=== PATIENT | male | born 1955 | race Caucasian/White ===

== ENCOUNTER 2025-03-05 14:40 | Day surgery (SDC) | payer OTHER ==
[2025-03-04 14:03] LABS: Absolute Basophils 0.1 K/uL (0-0.5); Absolute Eosinophils 0.2 K/uL (0-0.5); Absolute Lymphocytes (CBC) 1.2 K/uL (0.7-4.9); Absolute Monocytes 0.4 K/uL (0.1-1.3); Absolute Neutrophil 4.3 K/uL (1.8-8.0); Eosinophils % 3.3 % (0-4.4); Hematocrit 43.4 % (39.6-49.0); Hemoglobin 15.1 g/dL (13.6-17.9); MCH 32.2 pg (27.0-35.0); MCHC 34.8 g/dL (32.0-36.0); MCV 92.5 fL (80-100); MPV 6.9 fL (7.6-11.3); Monocytes % 6.8 % (3.3-12.3); Neutrophils % 69.9 % (41.7-73.7); Platelets 225 thou/uL (152-406); RBC Red Blood Cell Count 4.69 M/uL (4.33-5.43); Red Cell Distribution Width 14.4 % (12.1-15.2)
[2025-03-04 14:16] LABS: PT Prothrombin Time 11.2 SECONDS (10-13.0); PTT, Activated Partial Thromb 30.8 SECONDS (27.2-37.4); Protime INR 0.98
[2025-03-04 14:20] LABS: Anion Gap 8.2 mEq/L (5.0-15.0); Potassium 4.2 mEq/L (3.5-5.1)
--- NOTE | 2025-03-04 15:25 | RAD REPORT ---
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 FINDINGS: LUNGS/PLEURA: The lungs are clear. No pleural effusions or pneumothorax. No pulmonary edema. CARDIAC/MEDIASTINUM: The cardiac silhouette is within normal limits. UPPER ABDOMEN: No significant abnormality. BONES: No acute abnormality. LINES/TUBES/OTHER: N/A IMPRESSION: No evidence of acute cardiopulmonary disease.
[2025-03-05] MEDS ORDERED: NA CHLORIDE 0.9% 500 ML ONE (14:47)
[2025-03-05] MEDS ORDERED: ATROPINE SULF 1 MG/10 ML SYR IV ONE (15:50)
[2025-03-05] MEDS ORDERED: LIDOCAINE 1% 20 ML MDV ONE (15:50)
[2025-03-05] MEDS ORDERED: HEPA 1000U/500MLS 2,000 UNIT/1,000 ML BAG IV ONE (15:50)
[2025-03-05] MEDS ORDERED: VERAPAMIL HCL 10 MG/4 ML VIAL IV ONE (15:50)
[2025-03-05] MEDS ORDERED: MIDAZOLAM HCL 2 MG/2 ML INJ ONE (15:50)
[2025-03-05] MEDS ORDERED: HEPARIN 10,000 UNIT/10 ML VIAL IV ONE (15:50)
[2025-03-05] MEDS ORDERED: HEPARIN 5000 UNIT/ML 1 ML VIAL ONE (15:51)
[2025-03-05] MEDS ORDERED: ASPIRIN 325 MG TAB ONE (15:51)
[2025-03-05] MEDS ORDERED: CLOPIDOGREL 75 MG TABLET ONE (15:51)
[2025-03-05] MEDS ORDERED: FENTANYL CITR 100 MCG/2 ML ONE (15:51)
[2025-03-05] MEDS ORDERED: TICAGRELOR 90 MG TABLET PO ONE (15:51)
--- NOTE | 2025-03-05 16:47 | OP ---
Date of Procedure: 03/05/2025 Surgeon: APPLE SWIFT Procedures Performed: 1. Selective coronary angiogram. 2. Left heart catheterization. Indication: Unstable angina. Access: Right radial artery 6-Niuean, closed with TR band. Complications: None. Bleeding: Less than 50 mL. Total Sedation Time: 45 minutes, used fentanyl and Versed. Description Of Procedure: After risks, benefits, and alternatives were explained, the patient agreed to procedure and signed informed consent. [facility] prepped and draped in usual sterile fashion. Then, I accessed right radial artery using pedi atric micropuncture kit and placed 6-Niuean Slender sheath and took 5-Niuean Norton 4 catheter into th e aortic root, engaged left main and then right coronary artery, took standard views and across the a ortic valve, measured the LVEDP. Pullback did not record any significant gradient. Then, removed th e catheter and the sheath and placed TR band with good hemostasis. Findings: 1. Left main, large and normal. 2. LAD, large vessel, proximal 30% stenosis. Rest of it is with luminal irregularities. Normal diag onal branches. 3. Left circumflex, large and dominant, proximal 30% and then clear of disease. 4. RCA, medium size vessel, codominant, and no disease. 5. LVEDP is 8 and mean gradient across the aortic valve was only 12 mmHg. Conclusion: 1. Mild nonobstructive coronary artery disease. 2. No significant gradient through the aortic valve. 3. Status post BAV. Plan: Medical management and arrange for aortic valve replacement after obtaining the records from [facility] to confirm that he had a BAV. SR/MODL Voice ID: [id number] Report ID: [id number]
[2025-03-05 19:07] VITALS: O2SAT 99
[2025-03-05 19:51] VITALS: BP 111/58
--- NOTE | 2025-03-10 12:42 | EKG ---
Test Date: 2025-03-04 Test Time: 13:47:28 Cartography Teacher: JAZMINE MEASUREMENT RESULTS: Intervals: Rate: 71 UT: 154 QRSD: 90 QT: 392 QTc: 425 [place]: P: 33 UT: 154 QRS: 54 T: 35 INTERPRETIVE STATEMENTS: Normal sinus rhythm Normal ECG Compared to ECG 09/28/2017 13:19:54 No significant changes Electronically Signed On 03-10-25 12:30:00 CDT by Nate Bartlett
== END 2025-03-05 19:45 | disposition home or self-care (01) ==
LOC: CCL 14:40
PROVIDERS: ATTEND Internal Medicine
DX: I25.110 Atherosclerotic heart disease of native coronary artery with unstable angina pectoris (principal); I34.0 Nonrheumatic mitral (valve) insufficiency; I10 Essential (primary) hypertension; R09.89 Other specified symptoms and signs involving the circulatory and respiratory systems; Z87.891 Personal history of nicotine dependence; Z79.899 Other long term (current) drug therapy
CPT/HCPCS: 93005; 85025; 80048; 36415; 85610; 85730; 71046; 93458; 76937; C1893; Q9966; J1644 ×2; J2003; J2250; J3010; J7040; 99152; J0461